=== PATIENT | male | born 1985 | race Caucasian/White ===

== ENCOUNTER → 2017-06-06 | Outpatient (CLI) | payer BC ==
--- NOTE | 2017-06-06 17:08 | XR ---
EXAMINATION TYPE: XR Hip LT and AP Pelvis DATE OF EXAM: 06/06/2017 COMPARISON: NONE HISTORY: Hip pain TECHNIQUE: A single AP view of the pelvis is obtained. Two views of the left hip are obtained. FINDINGS: Pelvic ring is intact. Proximal left femur and hip joint appear normal. There is no sign of hip dysplasia. Sacroiliac joints appear normal.. IMPRESSION: Normal pelvis and left hip exam.
== END ==
LOC: RADXRMAIN 16:32
PROVIDERS: ATTEND Family Medicine
DX: M25.552 Pain in left hip (principal)
CPT/HCPCS: 73502

== ENCOUNTER → 2017-06-14 | Outpatient (CLI) | payer BC ==
--- NOTE | 2017-06-14 19:42 | EST ---
EXERCISE STRESS AGE: 32 SEX: Male HT: 6'3" WT: 240 lbs. PROTOCOL: Jose. STAGE: 4 DURATION OF EXERCISE: 9:30 HEART RATE REST: 92 BLOOD PRESSURE REST: 125/76 MAXIMUM HEART RATE ACHIEVED: 171 MAXIMUM BLOOD PRESSURE: 208/62 85% MPHR: 161 100% MPHR: 189 METS: 11.1 INDICATIONS: Chest pain. CLINICAL INFORMATION: History of chest discomfort. Baseline heart rate 92 beats per minute. Baseline blood pressure 125/76 mmHg. Baseline 12-lead ECG shows sinus rhythm with normal ST segments. The patient exercised on a Ojse protocol for 9 minutes 30 seconds, achieving a peak heart rate of 171 beats per minute. Mildly hypertensive response to exercise. Peak blood pressure 208/62 mmHg. He was lightheaded at peak exercise. He did experience chest discomfort. There was no ECG evidence for ischemia. No arrhythmias were noted. IMPRESSION: Excellent exercise capacity. Mildly hypertensive response to exercise, but no evidence for ischemia. No arrhythmias. MMODL / IJN: [id number] /
== END | disposition home or self-care (01) ==
LOC: RADNMMAIN 10:55
PROVIDERS: ATTEND Family Medicine
DX: R07.9 Chest pain, unspecified (principal); R00.2 Palpitations
CPT/HCPCS: 93017

== ENCOUNTER → 2017-06-15 | Outpatient (CLI) | payer BC ==
--- NOTE | 2017-06-16 10:11 | ECHOF ---
Referral Reason:R07.89 chest pain R00.2 palpations MEASUREMENTS -------- HEIGHT: 190.5 cm WEIGHT: 108.9 kg BP: 136/90 RVIDd: 3.5 cm (< 3.3) IVSd: 1.1 cm (0.6 - 1.1) LVIDd: 5.1 cm (3.9 - 5.3) LVPWd: 1.2 cm (0.6 - 1.1) IVSs: 1.7 cm LVIDs: 3.5 cm LVPWs: 1.8 cm LAESV Index (A-L): 23.83 ml/m Ao Diam: 3.5 cm (2.0 - 3.7) AV Cusp: 2.3 cm (1.5 - 2.6) LA Diam: 3.3 cm (2.7 - 3.8) MV EXCURSION: 24.295 mm (> 18.000) MV EF SLOPE: 186 mm/s (70 - 150) EPSS: 0.3 cm MV E Elroy: 0.92 m/s MV DecT: 225 ms MV A Elroy: 0.53 m/s MV E/A Ratio: 1.73 RAP: 5.00 mmHg RVSP: 15.06 mmHg FINDINGS -------- Resting bradycardia (HR<60bpm). This was a technically adequate study. The left ventricular size is normal. There is borderline concentric left ventricular hypertrophy. Overall left ventricular systolic function is low-normal with, an EF between 50 - 55 %. The right ventricle is normal in size and function. Normal LA size by volume 22+/-6 ml/m2. The right atrium is normal in size. Aortic valve is trileaflet and is mildly thickened. Trace to mild aortic regurgitation. There is no evidence of aortic stenosis. The mitral valve is normal. There is trace mitral regurgitation. Trace tricuspid regurgitation present. Right ventricular systolic pressure is normal at < 35 mmHg. There is no evidence of pulmonary hypertension. The pulmonic valve is normal. The aortic root size is normal. Normal inferior vena cava with normal inspiratory collapse consistent with estimated right atrial pressure of 5 mmHg. The pericardium is normal. There is no pericardial effusion. CONCLUSIONS -------- 1. Resting bradycardia (HR<60bpm). 2. Trace tricuspid regurgitation present. 3. Right ventricular systolic pressure is normal at < 35 mmHg. 4. There is no evidence of pulmonary hypertension. 5. The aortic root size is normal. 6. There is no pericardial effusion. 7. This was a technically adequate study. 8. The left ventricular size is normal. 9. There is borderline concentric left ventricular hypertrophy. 10. Overall left ventricular systolic function is low-normal with, an EF between 50 - 55 %. 11. Normal LA size by volume 22+/-6 ml/m2. 12. Aortic valve is trileaflet and is mildly thickened. 13. Trace to mild aortic regurgitation. 14. There is trace mitral regurgitation. MD DO [facility]: Bryan Carias RDCS
== END | disposition home or self-care (01) ==
LOC: RADECHMAIN 10:40
PROVIDERS: ATTEND Family Medicine
DX: I08.3 Combined rheumatic disorders of mitral, aortic and tricuspid valves (principal)
CPT/HCPCS: 93270; 93271; 93306

== ENCOUNTER → 2019-03-02 | Outpatient (CLI) | payer BC ==
--- NOTE | 2019-03-02 13:49 | XR ---
EXAMINATION TYPE: XR abdomen 1V DATE OF EXAM: 03/02/2019 COMPARISON: NONE HISTORY: Acute abdominal pain TECHNIQUE: Single upright view the abdomen was obtained FINDINGS: There is a mild S-shaped scoliotic curvature of the lumbar spine. There is mild degree colo marshall fecal stasis with no dilated large or small bowel. No pneumoperitoneum is seen. Osseous structure s appear intact. No suspicious dislocation in the abdomen or pelvis. IMPRESSION: Nonobstructive bowel gas pattern.
== END | disposition home or self-care (01) ==
LOC: RADXRMAIN 13:21
PROVIDERS: ATTEND Family Medicine
DX: R10.0 Acute abdomen (principal)
CPT/HCPCS: 74018

== ENCOUNTER → 2019-08-31 | Outpatient (CLI) | payer BC ==
--- NOTE | 2019-08-31 09:46 | CT ---
EXAMINATION TYPE: CT chest abdomen wo con DATE OF EXAM: 08/31/2019 COMPARISON: NONE HISTORY: Chest and abdominal pain CT DLP: 854.60 mGycm. Automated Exposure Control for Dose Reduction was Utilized. TECHNIQUE: CT scan of the thorax and abdomen are performed with oral but without IV contrast. FINDINGS: LUNGS: Slightly elevated right hemidiaphragm. The lungs are grossly clear, there is no concerning par enchymal mass or nodule identified. There is no pleural effusion or pneumothorax seen. The tracheo bronchial tree is patent. MEDIASTINUM: There are no greater than 1 cm hilar or mediastinal lymph nodes. No cardiomegaly or pe ricardial effusion is seen. LIVER/GB: No significant abnormality is appreciated. PANCREAS: No significant abnormality is seen. SPLEEN: No significant abnormality is seen. ADRENALS: No significant abnormality is seen. KIDNEYS: No renal stones or hydronephrosis is seen bilaterally. BOWEL: Oral contrast only reaches distal jejunal loops. Ligament of Treitz normal in position. Majori ty of contrast filled jejunal loops in the right abdomen. Normal-appearing appendix is seen from the base of cecum. LYMPH NODES: No greater than 1cm abdominal or pelvic lymph nodes are appreciated. OSSEOUS STRUCTURES: Mild to moderate disc space narrowing L4-L5 and L5-S1 levels. OTHER: Small to moderate-sized fat-containing umbilical hernia. IMPRESSION: Unusual appearance with majority of jejunal loops in the right abdomen but normal positio malathi of the ligament of Treitz. No suspicious bowel dilatation. No acute finding clearly seen.
== END | disposition home or self-care (01) ==
LOC: RADCTMAIN 07:21
PROVIDERS: ATTEND Family Medicine
DX: R93.3 Abnormal findings on diagnostic imaging of other parts of digestive tract (principal); R07.9 Chest pain, unspecified; R05 Cough
CPT/HCPCS: 71250; 74150

== ENCOUNTER → 2020-02-29 | Outpatient (CLI) | payer BC ==
--- NOTE | 2020-02-29 13:42 | XR ---
EXAMINATION TYPE: XR abdomen 1V DATE OF EXAM: 02/29/2020 1:24 PM CLINICAL HISTORY: Abdominal pain. Umbilical hernia and constipation. TECHNIQUE: Two Upright KUB images of the abdomen are obtained. COMPARISON: Prior abdominal x-ray March 02, 2019. Prior CT August 31, 2019. FINDINGS: Scattered gas is seen in non-distended stomach and small bowel loops. Gas and fecal materia l is seen in non-distended colon. There is no visceromegaly or abnormal calcification appreciated. Th e lung bases are not included. The osseous structures are intact. IMPRESSION: Suboptimal study. Overall nonobstructive bowel gas pattern.
== END | disposition home or self-care (01) ==
LOC: RADXRMAIN 13:09
PROVIDERS: ATTEND Family Medicine
DX: R10.9 Unspecified abdominal pain (principal)
CPT/HCPCS: 74018

== ENCOUNTER → 2020-03-22 | Outpatient (CLI) | payer BC ==
--- NOTE | 2020-03-23 23:02 | CT ---
EXAMINATION TYPE: CT chest wo con DATE OF EXAM: 03/22/2020 COMPARISON: 08/31/2019 HISTORY: 35-year-old male R07.8, Left sided rib and chest pain. TECHNIQUE: Contiguous axial scanning of the chest without IV contrast. Coronal and sagittal reconstru ctions performed. CT DLP: 538.5 mGycm Automated exposure control for dose reduction was used. FINDINGS: Heart normal size without pericardial effusion. Aorta normal caliber with variant direct takeoff of the left vertebral artery directly from the aorti c arch. No thoracic lymphadenopathy by CT size criteria. No consolidation or pleural effusion. Tiny hiatal hernia. Ingested debris within the stomach. Mild stool burden. Bones: No osseous destructive process. IMPRESSION: NO ACUTE PULMONARY PROCESS. TINY HIATAL HERNIA.
== END | disposition home or self-care (01) ==
LOC: RADCTMAIN 12:51
PROVIDERS: ATTEND Family Medicine
DX: K44.9 Diaphragmatic hernia without obstruction or gangrene (principal); Z88.7 Allergy status to serum and vaccine
CPT/HCPCS: 71250

== ENCOUNTER → 2020-04-07 | Outpatient (CLI) | payer BC ==
--- NOTE | 2020-04-07 17:56 | MR ---
EXAMINATION TYPE: MR abdomen without contrast DATE OF EXAM: 04/07/2020 COMPARISON: CT chest 03/22/2020. CT abdomen and pelvis 08/31/2019. HISTORY: Left sided abdominal pain (rib/kidney) TECHNIQUE: Multiplanar, multisequence images of the abdomen were obtained without IV contrast. Lack o f intravenous contrast limits evaluation for solid visceral organs as well as vasculature. FINDINGS: Lung bases: No pleural or pericardial effusion. Liver: Subcentimeter right hepatic T2 hyperintense simple cyst. Not enlarged. No signal loss on out o f phase imaging to suggest fatty liver. Biliary: Normal. Pancreas: Normal. Spleen: Not enlarged. Adrenals: Normal. Kidneys: No hydronephrosis. Bowel: No bowel obstruction. Majority of the jejunum is again within the right abdomen. Lymph nodes: No lymphadenopathy. Vasculature: No abdominal aortic aneurysm. Circumaortic left renal veins. Peritoneum: No ascites. Osseous structures: No marrow-replacing lesions seen. IMPRESSION: No acute findings to explain patient's left-sided abdominal pain.
== END | disposition home or self-care (01) ==
LOC: RADMRIMAIN 09:02
PROVIDERS: ATTEND Family Medicine
DX: R10.9 Unspecified abdominal pain (principal)
CPT/HCPCS: 74181

== ENCOUNTER 2023-09-21 19:18 | Emergency (ER) | payer BC ==
[2023-09-21 19:39] VITALS: TEMP 97.9
[2023-09-21 19:58] LABS: Partial Thromboplastin Time 24.8 sec (22.0-30.0); Prothrombin Time 10.7 sec (10.0-12.5)
[2023-09-21 20:18] LABS: ALT 26 U/L (4-49); AST 31 U/L (17-59); African American GFR (CKD) >90 (>60 ml/min/1.73 sqM); Albumin 4.7 g/dL (3.5-5.0); Alkaline Phosphatase 78 U/L (38-126); Anion Gap 17 mmol/L; Blood Urea Nitrogen 20 mg/dL (9-20); Calcium 10.2 mg/dL (8.4-10.2); Carbon Dioxide 22 mmol/L (22-30); Chloride 100 mmol/L (98-107); Glucose 127 mg/dL (74-99); Magnesium 2.1 mg/dL (1.6-2.3); Non-African American GFR(CKD) 82 (>60 ml/min/1.73 sqM); Potassium 3.7 mmol/L (3.5-5.1); Sodium 139 mmol/L (137-145); Total Bilirubin 0.7 mg/dL (0.2-1.3); Total Protein 7.7 g/dL (6.3-8.2)
--- NOTE | 2023-09-21 20:39 | ED ---
Chest Pain HPI - General Source: patient Mode of arrival: ambulatory Limitations: no limitations <Ines Amor - Last Filed: 09/21/23 20:38> <Georgia Box - Last Filed: 09/23/23 08:29> - General Chief Complaint: Chest Pain Stated Complaint: Chest pain,high BP Time Seen by Provider: 09/21/23 19:36 - History of Present Illness Initial Comments: patient is a 38-year-old male presented ER with chief complaint of chest pain. Patient states he was sitting at his computer doing work when he started to feel a chest pain. He states both of his arms went numb. Patient states he had mild shortness of breath. Patient denies any fevers, chills, night sweats. No known history of cardiac disease. (Ines Amor) Is a healthy 38-year-old male with no significant medical history who presents to the ER today for evaluation of chest pain and numbness in left arm. Patient reports he's had some mild intermittent chest discomfort in the recent past but nothing concerning. Patient states that today he was sitting at his computer S when he began to feel some pressure like discomfort in his chest and he felt like his left arm aching and then mom and he was mildly short of breath. No diaphoresis or lightheadedness. Symptoms were nonexertional were not relieved with rest. Patient decided he should probably from the ER to be evaluated. (eGorgia Box) - Related Data Allergies Allergy/AdvReac Type Severity Reaction Status Date / Time pertussis vaccine,fluid Allergy Rash/Hives Verified 09/21/23 19:31 Review of Systems ROS Other: All systems not noted in ROS Statement are negative. <Ines Amor - Last Filed: 09/21/23 20:38> ROS Other: All systems not noted in ROS Statement are negative. <Georgia Box - Last Filed: 09/23/23 08:29> ROS Statement: Those systems with pertinent positive or pertinent negative responses have been documented in the HPI. EKG Findings - EKG Comments: EKG Findings:: Change interpreted by me, EKG obtained at 1927, rate is 120 rhythm is a narrow complex regular rhythm consistent with a sinus tachycardia, normal axis, normal intervals AZ 165 QRS or QTC 499. There are no acute ST elevations or mild diffuse ST depression likely demand ischemia based on tachycardia. PE EKG was obtained when patient's heart rate normalized, repeat EKG obtained at 2253, heart rate is 81 rhythm is sinus with first-degree AV block AZ is prolonged at 213, QRS 102 QTc 382. His left for axis normal intervals no acute ST elevations or depressions no evidence of acute ischemia or infarction. <Georgia Box P - Last Filed: 09/23/23 08:29> Past Medical History Past Medical History: Hypertension History of Any Multi-Drug Resistant Organisms: None Reported Past Surgical History: No Surgical Hx Reported Past Psychological History: No Psychological Hx Reported Smoking Status: Never smoker Past Alcohol Use History: None Reported Past Drug Use History: None Reported <Ines Amor - Last Filed: 09/21/23 20:38> General Exam Limitations: no limitations <Ines Amor - Last Filed: 09/21/23 20:38> - General Exam Comments Initial Comments: Visual Physical Exam Vital signs reviewed General: Well-appearing, nontoxic, no acute distress. Head: Normocephalic, atraumatic Eyes: PERRLA, EOMI ENT: Airway patent Chest: Nonlabored breathing Skin: No visual rash, normal skin tone Neuro: Alert and oriented 3 Musculoskeletal: No gross abnormalities (Ines Amor) Course Vital Signs 09/21/23 09/21/23 09/22/23 19:29 22:52 00:16 Temperature 97.9 F Pulse Rate 130 H 80 75 Respiratory 20 19 19 Rate Blood Pressure 196/99 131/90 135/89 O2 Sat by Pulse 99 94 L 96 Oximetry Chest Pain MDM <Ines Amor - Last Filed: 09/21/23 20:38> <Georgia Box P - Last Filed: 09/23/23 08:29> - MDM I performed the quick note portion of the exam. Electronically signed by Ines Amor PA-C (Ines Amor) Was pt. sent in by a medical professional or institution (ISABEL Krishna, BRAND ENGINEER, urgent care, hospital, or long-term...) When possible be specific @ -No Did you speak to anyone other than the patient for history (EMS, parent, family, police, friend...)? What history was obtained from this source @ -No Did you review nursing and triage notes (agree or disagree)? Why? @ -I reviewed and agree with nursing and triage notes Were old charts reviewed (outside hosp., previous admission, EMS record, old EKG, old radiological studies, urgent care reports/EKG's, long-term records)? Report findings @ -No old charts were reviewed Differential Diagnosis (chest pain, altered mental status, abdominal pain women, abdominal pain men, vaginal bleeding, weakness, fever, dyspnea, syncope, headache, dizziness, GI bleed, back pain, seizure, CVA, palpatations, mental health)? @ -not applicable EKG interpreted by me (3pts min.). @ -As above X-rays interpreted by me (1pt min.). @ No acute findings CT interpreted by me (1pt min.). @ -None done U/S interpreted by me (1pt. min.). @ -None done What testing was considered but not performed or refused? (CT, X-rays, U/S, labs)? Why? @ -None What meds were considered but not given or refused? Why? @ -None Did you discuss the management of the patient with other professionals (professionals i.e. , PA, BRAND ENGINEER, lab, RT, psych nurse, health and social care teacher, golf player assistant, teacher, military source operations officer, special education case manager)? Give summary @ -No Was smoking cessation discussed for >3mins.? @ -No Was critical care preformed (if so, how long)? @ -No Were there social determinants of health that impacted care today? How? (Homelessness, low income, unemployed, alcoholism, drug addiction, transportat ion, low edu. Level, literacy, decrease access to med. care, [facility], rehab)? @ -No Was there de-escalation of care discussed even if they declined (Discuss DNR or withdrawal of care, Hospice)? DNR status @ -No What co-morbidities impacted this encounter? (DM, HTN, Smoking, COPD, CAD, Cancer, CVA, ARF, Chemo, Hep., AIDS, mental health diagnosis, sleep apnea, morbid obesity)? @ -None Was patient admitted / discharged? Hospital course, mention meds given and route, prescriptions, significant lab abnormalities, going to OR and other pertinent info. @ -Discharge Seen and evaluated history is obtained from the patient labs and imaging were obtained and were unremarkable. Patient is comfortable plan for discharge home and outpatient follow-up. Undiagnosed new problem with uncertain prognosis? @ -No Drug Therapy requiring intensive monitoring for toxicity (Heparin, Nitro, Insulin, Cardizem)? @ -No Were any procedures done? @ -No Diagnosis/symptom? @ -Atypical chest pain Acute, or Chronic, or Acute on Chronic? @ -default Uncomplicated (without systemic symptoms) or Complicated (systemic symptoms)? @ -default Side effects of treatment? @ -No Exacerbation, Progression, or Severe Exacerbation? @ -No Poses a threat to life or bodily function? How? (Chest pain, USA, LA, pneumonia, PE, COPD, DKA, ARF, appy, cholecystitis, CVA, Diverticulitis, Homicidal, Suicidal, threat to staff... and all critical care pts) @ -No (Georgia Box) Disposition <Ines Amor - Last Filed: 09/21/23 20:38> Is patient prescribed a controlled substance at d/c from ED?: No <Georgia Box - Last Filed: 09/23/23 08:29> Clinical Impression: Atypical chest pain Disposition: HOME SELF-CARE Condition: Stable Instructions (If sedation given, give patient instructions): Chest Pain (ED) Referrals: Valentín Silverio DO [Primary Care Provider] - 1-2 days
[2023-09-21 21:48] LABS: Basophils % (A) 0 %; Eosinophils # (A) 0.1 k/uL (0-0.7); Eosinophils % (A) 1 %; HCT 43.8 % (39.0-53.0); HGB 15.4 gm/dL (13.0-17.5); Lymphocytes # (A) 1.7 k/uL (1.0-4.8); Lymphocytes % (A) 17 %; MCH 29.3 pg (25.0-35.0); MCHC 35.2 g/dL (31.0-37.0); MCV 83.1 fL (80.0-100.0); Mean Platelet Volume 8.8; Monocytes # (A) 0.6 k/uL (0-1.0); Monocytes % (A) 6 %; Neutrophils # (A) 7.2 k/uL (1.3-7.7); Neutrophils % (A) 73 %; Platelet Count 243 k/uL (150-450); RBC 5.27 m/uL (4.30-5.90); RDW 12.6 % (11.5-15.5)
[2023-09-21 22:56] VITALS: RESP 19
--- NOTE | 2023-09-21 23:54 | CT ---
EXAM: CT Angiography Chest With Intravenous Contrast CLINICAL HISTORY: ITS.REASON CT Reason: chest pain TECHNIQUE: Axial computed tomographic angiography images of the chest with intravenous contrast. CTDI is 37.9 mGy and DLP is 639 mGy-cm. This CT exam was performed using one or more of the following dose reduction techniques: automated exposure control, adjustment of the mA and/or kV according to patient size, and/or use of iterative reconstruction technique. MIP reconstructed images were created and reviewed. COMPARISON: No relevant prior studies available. FINDINGS: Pulmonary arteries: Adequate pulmonary artery opacification. No evidence of acute pulmonary embolism. Aorta: No acute findings. No thoracic aortic aneurysm. Lungs: Unremarkable. No mass. No consolidation. Pleural space: Unremarkable. No significant effusion. No pneumothorax. Heart: Unremarkable. No cardiomegaly. No significant pericardial effusion. No evidence of RV dysfunction. Bones/joints: No acute fracture. No dislocation. Soft tissues: Unremarkable. Lymph nodes: Unremarkable. No enlarged lymph nodes. IMPRESSION: No evidence of acute pulmonary embolism.
[2023-09-22 00:34] VITALS: BP 135/89; PULSE 75
--- NOTE | 2023-09-22 01:16 | XR ---
EXAMINATION TYPE: XR chest 2V DATE OF EXAM: 09/21/2023 9:06 PM CLINICAL INDICATION:Male, 38 years old with history of Chest Pain; [facility] COMPARISON: Same day CT angiogram chest TECHNIQUE: XR chest 2V. Frontal PA and lateral views of the chest. FINDINGS: Lines/Tubes: None. Heart/mediastinum: Cardiomediastinal silhouette is well defined. Heart size is normal. Mediastinum appears normal. Pulmonary vascularity: Not increased, Lungs/Pleura: There is no evidence of pleural effusion, focal consolidation, or pneumothorax. Musculoskeletal: No acute osseous abnormality demonstrated in the limits of the exam. Mild asymmetri c elevation of the right hemidiaphragm. Other findings: None. IMPRESSION: No acute cardiopulmonary abnormality.
== END 2023-09-22 00:28 | disposition home or self-care (01) ==
LOC: EC 19:18
DX: I44.0 Atrioventricular block, first degree (principal); I10 Essential (primary) hypertension; Z88.7 Allergy status to serum and vaccine
CPT/HCPCS: 36415; 93005; 85379; 80053; 83735; 84484; 85025; 85610; 85730; 87636; 71046; 71275; 99285; Q9967

== ENCOUNTER → 2024-04-12 | Outpatient (CLI) | payer BC ==
--- NOTE | 2024-04-12 09:55 | XR ---
EXAMINATION TYPE: XR shoulder complete LT DATE OF EXAM: 04/12/2024 COMPARISON: NONE HISTORY: Pain TECHNIQUE: Left Shoulder examined in 3 projections. FINDINGS: The humeral head articulates with the glenoid. The acromio-clavicular junction is normal. No acute fractures or dislocations are evident. A follow up study can be performed 7-10 days from acute trauma for continued pain. MRI can be perfor med if soft tissue evaluation would be of benefit. IMPRESSION: 1. No acute osseous left shoulder abnormality.
== END | disposition home or self-care (01) ==
LOC: RADXRMAIN 09:36
PROVIDERS: ATTEND Family Medicine
DX: M25.512 Pain in left shoulder (principal)